=== PATIENT | male | born 1995 | race Caucasian/White ===

== ENCOUNTER 2020-12-14 19:49 | Emergency (ER) | payer BC ==
[~2020-12-14] VITALS: Ht 185.4 cm; Wt 81.8 kg
[2020-12-14 19:50] VITALS: BP 125/64
[2020-12-14] MEDS ORDERED: HYDR-3713 PO (23:40)
[2020-12-14] MEDS ORDERED: NORCO 5/325MG TABLET (BULK FOR ED) PO ONE (23:45)
== END 2020-12-15 00:21 | disposition home or self-care (01) ==
LOC: M ED 19:49
DX: S82.855A Nondisplaced trimalleolar fracture of left lower leg, initial encounter for closed fracture (principal); W17.89XA Other fall from one level to another, initial encounter; Y92.019 Unspecified place in single-family (private) house as the place of occurrence of the external cause; Y93.9 Activity, unspecified; Y99.9 Unspecified external cause status